=== PATIENT | female | born 1960 | race Caucasian/White ===

== ENCOUNTER 2025-05-05 10:58 | Emergency (ER) | payer OTHER, SELFPAY ==
--- NOTE | ~2025-05-05 | CT_ITS ---
EXAMINATION: CT ABDOMEN AND PELVIS WITHOUT CONTRAST CLINICAL INFORMATION: Right lower quadrant pain, right flank pain COMPARISON: March 02, 2019 TECHNIQUE: Multidetector volumetric imaging was performed from the superior aspect of the liver through the pubic symphysis. Sagittal and coronal reformatted images were obtained on the technologist's workstation. This CT examination was performed using dose optimization techniques as appropriate, variously including the following: *Automated exposure control *Adjustment of mA and/or kV according to patient size (this includes techniques or standardized protocols for targeted exams where dose is matched to indication/reason for exam; i.e. extremities or head) *Use of iterative reconstruction technique DLP: 484 mGY*cm FINDINGS: LUNG BASES: Clear and well aerated LIVER, GALLBLADDER, AND BILIARY TREE: Again seen are multiple small hypoattenuating lesions in liver, likely simple hepatic cysts. The gallbladder is unremarkable with no evidence of radiopaque gallstones, gallbladder wall thickening, or obvious pericholecystic inflammatory changes. PANCREAS: Unremarkable. SPLEEN: Unremarkable. ADRENAL GLANDS: Unremarkable. KIDNEYS AND URETERS: The kidneys are normal in size, shape, and attenuation. No hydronephrosis, hydroureter, or calculi seen. No perinephric stranding. BLADDER: Unremarkable. GASTROINTESTINAL TRACT: There is a pseudodiverticula in the cecum. On the prior examination, there is acute appendicitis. On the current examination, there are clips from appendectomy. ABDOMINAL WALL: There is a small focal hernia containing normal density adipose tissue. LYMPH NODES: Normal. VASCULAR: Unremarkable. PELVIC VISCERA: There is a pessary. There is a lobulated fibroid uterus with increase in calcification of the degenerating fibroids Left adnexal septated cyst measures 2.7 x 4.7 cm previously 2.4 x 4.5 cm, unchanged. OSSEOUS STRUCTURES: Disc space narrowing and vacuum phenomenon is present at L5-S1. CT/CT abdomen pelvis wo IV con IMPRESSION: Post appendectomy. No abnormality to explain right-sided pain. Isolated pseudodiverticulum is present in the right colon, no sign of inflammation. Fleischner guidelines were followed. Electronically signed by: Wally Verdugo MD 05/05/2025 05:04 PM EDT
[2025-05-05 11:15] VITALS: BP 156/63; PULSE 78; RESP 16; TEMP 36.7; O2SAT 98; BMI 25.1
--- NOTE | 2025-05-05 11:15 | ED.ABDPAIN ---
HPI - Abdominal Pain General Chief Complaint: Abdominal Pain Stated Complaint: R Side Abd Pain Time Seen by Provider: 05/05/25 14:05 History of Present Illness HPI narrative: Patient is 65 years old presents today with having abdominal pain for the last 2 weeks. It radiates from the right lower quadrant to the right flank area. History of having appendectomy many years ago. There is no fever no chills there is no vomiting there is some minimal nausea. There is no diarrhea. No travel history no history of kidney stone patient is from home worse in the last 2 days. Related Data Previous Rx's ?Medication ?Instructions ?Recorded bisacodyl 5 mg tablet,delayed 10 mg (2 x 5 mg) PO BEDTIME PRN 05/05/25 release (Dulcolax (bisacodyl)) constipation #30 tabs Allergies Allergy/AdvReac Type Severity Reaction Status Date / Time No Known Allergies (No Known Allergy Verified 05/05/25 11:18 Allergies*) Review of Systems Review of Systems No shortness a breath no focal weakness Yes all other systems are reviewed and are negative [facility] Past Medical History Attestation statement: The following information was validated with the patient. Social History Social History Smoked in Last 30 Days: No Use of substances other than those prescribed or required for medical reasons: No Advance Directives: No Advance Directives Information Provided: No Do you have a plan to hurt others: No Plan Patient : No Physical Exam ED Vital Signs: Vital Signs - 24 hr 05/05/25 11:15 05/05/25 14:40 05/05/25 17:14 Temperature 98.1 F 98.6 F 98.3 F Pulse Rate 78 66 70 Respiratory Rate 16 16 18 Blood Pressure 156/63 H 146/63 H 136/65 Pulse Oximetry 98 98 98 Oxygen Delivery Method Room Air Room Air Room Air BMI result Body Mass Index 25.1 Appearance: Alert. Oriented X3. No acute distress. Eyes: Pupils equal, round and reactive to light. ENT: Pharynx normal. Neck: Normal inspection. Neck supple. No lymph nodes noted. No crepitus CVS: Normal heart rate and rhythm. Pulses normal. Normal S1 and S2 Respiratory: No respiratory distress. Breath sounds normal. No Wheezing. No rales Abdomen: Soft and nontender. No rigidity. No distention. good BS x4 Skin: Skin warm and dry. Normal skin color. Normal skin turgor. Extremities: No lower extremity edema. Neurovascular intact to all extremities. No Lacerations. No Rash Neuro: Oriented X 3. No motor deficit. No sensory deficit. Moving all extermities. No slurred speech Course Course Course Narrative: This is an RME performed by Nestor Gong CNP: Additional HPI, ROS, PE not included below will be deferred to primary provider. Patient is a 65-year-old female who presents emergency department for evaluation of abdominal pain. Had right upper quadrant abdominal pain intermittent over the past 2 weeks, at first felt as though maybe was exacerbated by eating but does not seem to be the case now. Pain has now moved to the right lower quadrant and is more constant. Pain is worse today. Admits to associated nausea but no vomiting. No diarrhea. No symptoms. hx of appendectomy Plan: Serum labs, urinalysis Medical Decision Making Medical Decision Making [facility] Narrative: Patient is a 65-year-old female presents today with having right-sided abdominal pain she is status post appendectomy. The pain has been ongoing for 2 weeks is worse over the right lower quadrant area but radiates to the back. Patient's urine have small amount of blood. CT scan of the abdomen pelvis was ordered. White count is normal. Electrolytes are unremarkable. LFTs are normal. Patient's urine showed small amount of blood no signs of infection. CT scan of the abdomen pelvis is currently pending. Patient's CT scan showed stool overload and fibroids final report is pending patient does not want to wait labs are stable patient is feeling much comfortable at this time will discharge patient home Differential Diagnosis Differential Diagnoses: The differential diagnosis associated with the presentation includes Kidney stone, obstruction, diverticulitis Lab Data [facility] Lab Attestation statement: I reviewed the patient's lab results. 05/05/25 12:02 05/05/25 12:02 Labs: Lab Results 05/05/25 Range/Units 12:02 WBC 5.1 (4.8-10.8) X10*3/uL RBC 4.56 (4.20-5.50) X10*6/uL Hgb 13.8 (12.0-16.0) g/dl Hct 40.3 (37.0-47.0) % MCV 88.4 (80.0-98.0) fL MCH 30.3 (27.0-33.0) pg MCHC 34.2 (31.0-35.0) g/dl RDW 12.5 (11.0-16.0) % Plt Count 298 (160-400) X10*3/uL MPV 10.7 (9.4-12.3) fL Immature Gran % (Auto) 0.4 (0.0-0.4) % Neut % (Auto) 48.2 (45-73) % Lymph % (Auto) 38.2 (20-40) % [place] % (Auto) 10.0 (2-11) % Eos % (Auto) 2.0 (0-4) % Baso % (Auto) 1.2 (0-2) % Lymph # (Auto) 2.0 (1.2-4.9) X10*3/uL [place] # (Auto) 0.5 (0.1-1.2) X10*3/uL Eos # (Auto) 0.1 (0.0-0.4) X10*3/uL Baso # (Auto) 0.1 (0.0-0.2) X10*3/uL Abs Immat Gran (auto) 0.02 (0.00-0.03) X10*3/uL Absolute Neuts (auto) 2.5 (2.0-8.3) x10*3/uL Absolute Nucleated RBC 0.000 (0.0-0.012) X10*3/uL Nucleated RBC % (auto) 0.0 (0.0-0.2) /100WBC Sodium 140 (135-145) mmol/L Potassium 3.7 (3.3-5.1) mmol/L Chloride 105 (96-108) mmol/L Carbon Dioxide 28 (22-29) mmol/L Anion Gap 11 L (12-20) BUN 13 (9-16) mg/dL Creatinine 0.86 (0.5-1.4) mg/dL Estim Creat Clear Calc 65.1 Estimated GFR > 60 Random Glucose 101 (60-115) mg/dL Calcium 9.3 (8.4-10.2) mg/dL Magnesium 2.0 (1.6-2.6) mg/dL Total Bilirubin 0.4 (0.0-1.0) mg/dL AST 23 (5-31) U/L ALT 31 (0-31) U/L Alkaline Phosphatase 45 (39-117) U/L Total Protein 7.3 (6.5-8.0) g/dL Albumin 4.6 (3.5-5.0) g/dL Lipase 15 (8-78) U/L Urine Color Yellow Urine Appearance Clear Urine pH 7.5 (5.0-9.0) Ur Specific [place] 1.010 (1.005-1.025) Urine Protein Negative (Neg-Trace) mg/dL Urine Glucose (UA) Negative (Negative) mg/dL Urine Ketones Negative (Negative) mg/dL Urine Blood Small (1+) H (Negative) Urine Nitrite Negative (Negative) Ur Leukocyte Esterase Negative (Negative) Urine RBC 6-10 H (0-2) /HPF Urine WBC 0-5 (0-5) /HPF Ur Squamous Epith Cells 0-2 (0-2) /HPF Urine Bacteria None Seen (None Seen) Hyaline Casts 0-2 (0-2) /LPF Independent Interpretation I performed an independent interpretation of an: CT Scan (No obstruction no abscess no perforation) Medications Administered Discontinued Medications Generic Name Dose Route Start Last Admin Trade Name Freq PRN Reason Stop Dose Admin Sodium Chloride 1,000 mls @ 999 mls/hr 05/05/25 15:30 05/05/25 17:45 Ns IV 05/05/25 16:30 Infused .Q1H1M CHARLEE Infusion Ketorolac Tromethamine 15 mg 05/05/25 15:28 05/05/25 16:13 Ketorolac Tromethamine 15 Mg/Ml Vial IVPUSH 05/05/25 15:29 Not Given ONCE ONE Ondansetron HCl 4 mg 05/05/25 15:29 05/05/25 16:13 Ondansetron Hcl 4 Mg/2 Ml Vial IVPUSH 05/05/25 15:30 Not Given ONCE ONE Discharge Plan Discharge Clinical Impression: Constipation, Fibroid uterus Patient Disposition: Home, Self-Care Instructions: Uterine Fibroids (ED), Constipation (ED) Additional Instructions: Drink plenty of fluids Take stool softener daily as advised You may take Dulcolax every night Follow with your PCP if not better Prescriptions: New bisacodyl [Dulcolax (bisacodyl)] 5 mg tablet,delayed release (DR/EC) 10 mg PO BEDTIME PRN (Reason: constipation) Qty: 30 0RF Print Language: Hungarian
--- NOTE | 2025-05-05 11:18 | ECG_ITS ---
Test Reason : ABDOMINAL PAIN Blood Pressure : */* mmHG Vent. Rate : 65 BPM Atrial Rate : 65 BPM P-R Int : 160 ms QRS Dur : 78 ms QT Int : 418 ms P-R-T Axes : 58 53 60 degrees QTcB Int : 434 ms Normal sinus rhythm Normal ECG No previous ECGs available Referred By: Roseann Gong Electronically Signed By: SHE GONZALEZ MD
[2025-05-05 12:07] LABS: MANUAL DIFF FLAG NO
[2025-05-05 12:09] LABS: Appearance Urine Clear; Glucose Urine UA Negative (Negative); Hematocrit 40.3 % (37.0-47.0); Hemoglobin 13.8 g/dl (12.0-16.0); Imm Gran Abs Auto 0.02 X10*3/uL (0.00-0.03); Imm Gran Pct Auto 0.4 % (0.0-0.4); Lymphocytes Absolute Auto 2.0 X10*3/uL (1.2-4.9); Mean Corpuscular HGB Conc 34.2 g/dl (31.0-35.0); Mean Corpuscular Hemoglobin 30.3 pg (27.0-33.0); Mean Corpuscular Volume 88.4 fL (80.0-98.0); NRBC Abs Auto 0.000 X10*3/uL (0.0-0.012); NRBC Pct Auto 0.0 /100WBC (0.0-0.2); PH 7.5 (5.0-9.0); Platelet Count 298 X10*3/uL (160-400); Red Blood Count 4.56 X10*6/uL (4.20-5.50); Specific Gravity - Urine 1.010 (1.005-1.025); UMIC TRIGGER UACC YES; White Blood Count 5.1 X10*3/uL (4.8-10.8)
[2025-05-05 12:23] LABS: Alanine Aminotransferase 31 U/L (0-31); Albumin Level 4.6 g/dL (3.5-5.0); Alkaline Phosphatase 45 U/L (39-117); Anion Gap 11 (12-20); Aspartate Amino Transferase 23 U/L (5-31); Blood Urea Nitrogen 13 mg/dL (9-16); Calcium 9.3 mg/dL (8.4-10.2); Carbon Dioxide 28 mmol/L (22-29); Chloride 105 mmol/L (96-108); Creatinine Clr Calc Pharmacy 65.1; Estimated Glomerular Filt Rate > 60; Lipase 15 U/L (8-78); Magnesium 2.0 mg/dL (1.6-2.6); Potassium 3.7 mmol/L (3.3-5.1); Sodium 140 mmol/L (135-145); Total Protein 7.3 g/dL (6.5-8.0)
[2025-05-05 14:40] VITALS: BP 146/63; PULSE 66; RESP 16; TEMP 37; O2SAT 98
--- OUTSIDE RECORDS SUMMARY | 2025-05-05 14:48 | XMS_ITS | Data Portability ---
Author Organization [facility], , [facility] Address [address] [place] [address] Care Team Providers Care Communications Administrator Name Role Phone ARTEMIO ORTIZ Primary Care Provider Assessment Encounter Date Assessment Date Assessment LastModified by Organization Details LastModified Time 05/05/2023 05/05/2023 After a discussion of treatment options, which included consideration of best practices and patient preferences, the following treatment plan and objectives were adopted: pkeough Not available 05/05/2023 09:53:19 Plan of Treatment Reminders Order Date Submit Date Provider Last Modified By Organization Details Last Modified Time Details Appointments Ultras ound 45 min 2024 09:45A M [facility] Ultrasound Not available Not available Not available Catrachone ss Visit 30 2024 09:00A M Greta Brambila MEDICAL PRACTICE ADMINISTRATOR Not available Not available Not available Lab urinal ysis, dipsti ck [address] [facility], [address] [place] [address], [id number], 05/04/2025 16:30:08 cultur e, urine [email or web address] [facility], [address] [place] [address], [id number], 05/04/2025 16:30:08 CMP, serum or plasma 2024 025 [facility], [address] [place] [address], [id number], 05/04/2025 15:25:45 CBC 2024 025 [facility], [address] [place] [address], [id number], 05/05/2025 10:22:27 lipase , serum or plasma 2024 025 [facility], [address] [place] [address], [id number], 05/04/2025 15:25:45 HbA1c (hemog lobin A1c), blood 2023 024 [facility], [address] [place] [address], [id number], 04/07/2025 16:09:39 TSH, serum or plasma 2023 024 [facility], [address] [place] [address], [id number], 12/21/2023 12:08:39 lipid panel, serum 2023 024 [facility], [address] [place] [address], [id number], 12/03/2024 15:15:07 lipid panel, serum 2023 024 [facility], [address] [place] [address], [id number], 12/03/2024 15:15:07 urinal ysis, dipsti ck 2022 023 [facility], [address] [place] [address], 01861, 05/05/2023 10:07:43 cultur e, urine 2022 023 [facility], [address] [place] [address], 08257, 05/07/2023 09:12:45 HbA1c (hemog lobin A1c), blood 2022 023 [facility], [address] [place] [address], [address], 10/03/2023 15:35:43 lipid panel, serum 2022 023 [facility], [address] [place], [address], 10/03/2023 14:40:19 Referral None record ed. Procedures None record ed. Surgeries None record ed. Imaging US, abdome n, comple te - ruq and right flank pain - r/o gallbl adder diseas e, renal calcul i 2024 025 [facility] (Imaging), [address] , [place], [address], 05/05/2025 09:48:28 Medication Orders gabape ntin 100 mg capsul e 2024 025 [id number], [address], [place], [id number], 05/04/2025 15:15:59 pravas tatin 10 mg tablet 2023 024 [email or web address] [id number], [address], [place], [id number], 05/04/2025 14:49:56 Estrin g 2 mg (7.5 mcg/24 hour) vagina l ring 2023 024 [place] [facility][id number], [address], [place], [id number], 12/05/2023 09:24:20 Bactri m DS 800 mg-160 mg tablet 2022 023 [facility]o [facility] [address] [facility] [address], [place], [id number], 02/13/2024 08:46:09 Patient TargetsNo targets recorded. Patient InstructionsNo instructions recorded. Reason for Referral None Reported. Results Created Date Observation Date Name Description Value Unit Range Abnormal Flag Note LastModifiedBy Organization Detail LastModifiedTime 03/19/20 23 03/19/2023 HGB A1C hemoglobin A1C 6.0 % 4.8-6. 0 Goal: <7% in Patie nts with Diabe misha An A1c betwe en 5.7-6 .4% is ident ified as pre-d iabet es and sugge sts risk for progr essio n to diabe misha Two a1c value s of 6.5% or highe r is consi stent with a diagn osis of diabe misha but may need furth er confi rmati on Not Available [address], [address], 03/19/2023 10:50:23 03/19/2003/19/2023 HGB A1C estimated average glucose 125.5 mg/dL Not Available [address], [address], 03/19/2023 10:50:23 03/19/20 23 03/19/2023 LIPID PANEL cholesterol 263 mg/dL <200 mg/dl Elroy able 200-2 39 mg/dl Borde rline High >240 mg/dl High Not Available [address], [address], 03/19/2023 12:42:26 03/19/2003/19/2023 LIPID PANEL triglyceride s 106 mg/dL <150 mg/dL Laurence l 150-1 99 mg/dL Borde rline High 200-4 99 mg/dL High >500 mg/dL Very High Not Available [address], [address], 03/19/2023 12:42:26 03/19/2003/19/2023 LIPID PANEL direct HDL 74 mg/dL <40 mg/dl - Major Risk for CHD >60 mg/dl - Negat birgit Risk for CHD Not Available [address], [address], 03/19/2023 12:42:26 03/19/2003/19/2023 LDL - CALCU LATED LDL - calculated 167.8 RISK CATEG ORY LDL GOAL _ CHD or CHD Risk Equiv alent s <100 mg/dl (10-y ear risk >20%) 2+ Risk Facto rs <130 mg/dl (10-y ear risk <= 20%) 0-1 Risk Facto r <160 mg/dl Almo st all peopl e with 0-1 risk facto r have a 10 year risk <10%, thus 10 year risk asses ment in peopl e with 0-1 risk facto r is not pamella skinner. Not Available [address], [address], 03/19/2023 12:42:27 03/19/20 23 03/19/2023 BASIC METAB OLIC PANEL glucose 92 mg/dL 70-100 Not Available [address], [address], 03/19/2023 16:02:10 03/19/20 23 03/19/2023 BASIC METAB OLIC PANEL BUN 12 mg/dL 7-18 Not Available [address], [address], 03/19/2023 16:02:10 03/19/20 23 03/19/2023 BASIC METAB OLIC PANEL creatinine 0.9 mg/dL 0.8-1. 3 Not Available [address], 18[address], 03/19/2023 16:02:10 03/19/20 23 03/19/2023 BASIC METAB OLIC PANEL B/C 13.3 ratio Not Available [address], 57[address], 03/19/2023 16:02:10 03/19/20 23 03/19/2023 BASIC METAB OLIC PANEL GFR >=60ML /MIN mL/mi n normal >=60m L/min - Laurence l or midly reduc ed <60mL /min- Decre ased kidne y funct ion <15mL /min - Kidne y failu re [facility] calcu lates estim ated Glome rular Filtr ation Rate (eGFR ) using the Chron ic Kidne y Disea se Epide miolo gy Colla borat ion (CKD- EPI) Equat ion (Fabiana r et. al 2020) as recom rowan d by the Natio nal Kidne y Found ation . eGFR is based on age, serum creat inine , and sex. CKD-E PI does not calcu late eGFR by race, does not apply to child cesar (age <18 years ), and shoul d not be used in pregn sin. Not Available [address], [address], 03/19/2023 16:02:10 03/19/20 23 03/19/2023 BASIC METAB OLIC PANEL sodium 141 mmol/ L 136-14 5 Not Available [address], [address]60, 03/19/2023 16:02:10 03/19/20 23 03/19/2023 BASIC METAB OLIC PANEL potassium 5.1 mmol/ L 3.5-5. 1 Not Available [address], 03180, 03/19/2023 16:02:10 03/19/20 23 03/19/2023 BASIC METAB OLIC PANEL chloride 104 mmol/ L 96-107 Not Available [address], 8[address], 03/19/2023 16:02:10 03/19/20 23 03/19/2023 BASIC METAB OLIC PANEL anion gap 7.0 5.0-15 .0 Not Available [address], 9[address]01, 03/19/2023 16:02:10 03/19/20 23 03/19/2023 BASIC METAB OLIC PANEL CO2 30 mmol/ L 21-32 Not Available [address], 620[address], 03/19/2023 16:02:10 03/19/20 23 03/19/2023 BASIC METAB OLIC PANEL calcium 9.0 mg/dL 8.5-10 .3 Not Available [address], [address]276, 03/19/2023 16:02:10 05/05/20 23 05/05/2023 POC UA glu UA NEGATI VE Not Available [facility] [address] [place] [address], [address], 05/05/2023 09:41:46 05/05/20 23 05/05/2023 POC UA clarity UA CLEAR Not Available [facility] [address] [place] [address], 14359, 05/05/2023 09:41:46 05/05/20 23 05/05/2023 POC UA uro UA 0.2000 Not Available [facility] [address] [place] [address], [address], 05/05/2023 09:41:46 05/05/20 23 05/05/2023 POC UA ket UA NEGATI VE Not Available [facility] [address] [place] [address], 87[address], 05/05/2023 09:41:46 05/05/20 23 05/05/2023 POC UA pro UA NEGATI VE Not Available [facility] [address] [place] [address], 91029, 05/05/2023 09:41:46 05/05/20 23 05/05/2023 POC UA nit UA NEGATI VE Not Available [facility] [address] [place] [address], 81689, 05/05/2023 09:41:46 05/05/20 23 05/05/2023 POC UA angela UA NEGATI VE Not Available [facility] [address] [place] [address], 468[address], 05/05/2023 09:41:46 05/05/20 23 05/05/2023 POC UA pH UA 7.0000 Not Available [facility] [address] [place] [address], 73727, 05/05/2023 09:41:46 05/05/2005/05/2023 POC UA SG UA 1.0100 Not Available [facility] [address] [place] [address], 86880, 05/05/2023 09:41:46 05/05/2005/05/2023 POC UA color UA YELLOW Not Available [facility] [address] [place] [address], 95920, 05/05/2023 09:41:46 05/05/2005/05/2023 POC UA blo UA 1+ abnormal Not Available [facility] [address] [place] [address], 28822, 05/05/2023 09:41:46 05/05/2005/05/2023 POC UA shanae UA NEGATI VE Not Available [facility] [address] [place] [address], 03512, 05/05/2023 09:41:46 05/05/2005/07/2023 CULTU RE, URINE , ROUTI NE culture, urine, routine CULTU RE, URINE , ROUTI NE Micro Numbe r: [id number] Test Statu s: Final Speci men Sourc e: Urine Speci men Quali ty: Adequ ate Resul t: No Growt h Not Available [facility] [address], [address], 05/07/2023 09:12:45 05/28/2005/29/2023 ANATO ODALIS PATHO LOGY path report [facility] [address] [place] - [facility] [place] [address] Lab Direc tor: Ingrid polo MD Surgi vanessa Patho logy Repor t Acces maggy #: [id number] FINAL PATHO LOGIC DIAGN OSIS: COLON POLYP X 1, RECTU M, COLD SNARE REMOV AL: Adeno matou s polyp . Macey ctron icall y Rachell d Out By Ingrid polo MD By his/h er ifeoma cheatham above , the patho logis t liste d as juan carlos eldridge the Final Diagn osis certi fies that he/sh e has perso coral revie wed this case and confi rmed or corre cted the diagn osis. CLINI VANESSA HISTO RY High risk colon cance r surve illan ce: Perso nal histo ry of colon ic polyp s SPECI MENS SUBMI TTED: A: RECTU M COLON , POLYP X 1 GROSS DESCR IPTIO N RECTU M COLON , POLYP X 1: Recei cristal in forma darshan is a singl e piece of moreno soft tissu e which measu res 0.7 cm in great est dimen maggy. Bisec nabil and total ly submi tted in block A1. LT 2022 Gross ing Staff : SHAR brown Name: JESSICA BURR : 1959 (Age: 63) Sex: F 8 Insti tutio n: [facility] Locat ion: [facility] Date of Opera tion: 2022 Date of Acces maggy: 2022 Repor nabil: 2022 15:42 Resul ts To: Jasen Gonzalez MD, BS, MS Zora andrade MD, MPH, BA Not Available [facility] (Outpatient) [address] [place], [address], 05/29/2023 16:11:56 10/03/20 23 10/03/2023 LIPID PANEL cholesterol 311 mg/dL <200 mg/dl Elroy able 200-2 39 mg/dl Borde rline High >240 mg/dl High Not Available [address], [address], 10/03/2023 14:40:19 10/03/20 23 10/03/2023 LIPID PANEL triglyceride s 86 mg/dL <150 mg/dL Laurence l 150-1 99 mg/dL Borde rline High 200-4 99 mg/dL High >500 mg/dL Very High Not Available [address], [address], 10/03/2023 14:40:19 10/03/20 23 10/03/2023 LIPID PANEL direct HDL 87 mg/dL <40 mg/dl - Major Risk for CHD >60 mg/dl - Negat birgit Risk for CHD Not Available [address], [address], 10/03/2023 14:40:19 10/03/2010/03/2023 LDL - CALCU LATED LDL - calculated 206.8 RISK CATEG ORY LDL GOAL _ CHD or CHD Risk Equiv alent s <100 mg/dl (10-y ear risk >20%) 2+ Risk Facto rs <130 mg/dl (10-y ear risk <= 20%) 0-1 Risk Facto r <160 mg/dl [facility] all peopl e with 0-1 risk facto r have a 10 year risk <10%, thus 10 year risk asses ment in peopl e with 0-1 risk facto r is not neces brody. Not Available [address], [address], 10/03/2023 14:40:20 10/03/2010/03/2023 HGB A1C hemoglobin A1C 6.1 % 4.8-6. 0 high Goal: <7% in Patie nts with Diabe misha An A1c betwe en 5.7-6 .4% is ident ified as pre-d iabet es and sugge sts risk for progr essio n to diabe misha Two a1c value s of 6.5% or highe r is consi stent with a diagn osis of diabe misha but may need furth er confi rmati on Not Available [address], [address], 10/03/2023 15:35:42 10/03/20 23 10/03/2023 HGB A1C estimated average glucose 128.4 mg/dL Not Available [address], [address], 10/03/2023 15:35:42 12/21/19 24 12/21/2023 LIPID PANEL cholesterol 241 mg/dL <200 mg/dl Elroy able 200-2 39 mg/dl Borde rline High >240 mg/dl High Not Available [address], 48187, 12/21/2023 11:40:48 12/21/19 24 12/21/2023 LIPID PANEL triglyceride s 69 mg/dL <150 mg/dL Laurence l 150-1 99 mg/dL Borde rline High 200-4 99 mg/dL High >500 mg/dL Very High Not Available [address], [address]06, 12/21/2023 11:40:48 12/21/19 24 12/21/2023 LIPID PANEL direct HDL 71 mg/dL <40 mg/dl - Major Risk for CHD >60 mg/dl - Negat birgit Risk for CHD Not Available [address], [address], 12/21/2023 11:40:48 12/21/19 24 12/21/2023 LDL - CALCU LATED LDL - calculated 156.2 RISK CATEG ORY LDL GOAL _ CHD or CHD Risk Equiv alent s <100 mg/dl (10-y ear risk >20%) 2+ Risk Facto rs <130 mg/dl (10-y ear risk <= 20%) 0-1 Risk Facto r <160 mg/dl Almo st all peopl e with 0-1 risk facto r have a 10 year risk <10%, thus 10 year risk asses ment in peopl e with 0-1 risk facto r is not pamella skinner. Not Available [address], [address], 12/21/2023 11:40:49 12/21/19 24 12/21/2023 TSH TSH 4.98 uIU/m L 0.50-6 .00 The Ameri can Colle ge of Endoc rinol ogy and Ameri can Thyro id Assoc iatio n recom mend goal TSH value s betwe en 0.4-4 .0 mIU/m L. Not Available [address], [address], 12/21/2023 12:08:39 06/25/20 24 06/25/2024 CBC WBC 6.58 K/ L 3.98-1 0.04 Not Available [address], [address], 06/25/2024 10:28:25 06/25/20 24 06/25/2024 CBC RBC 4.59 M/ L 3.93-5 .22 Not Available [address], 83206, 06/25/2024 10:28:25 06/25/20 24 06/25/2024 CBC HGB 13.6 g/dL 11.2-1 5.7 Not Available [address], [address], 06/25/2024 10:28:25 06/25/20 24 06/25/2024 CBC HCT 41.4 % 34.1-4 4.9 Not Available [address], [address]755, 06/25/2024 10:28:25 06/25/20 24 06/25/2024 CBC MCV 90.2 fL 79.4-9 4.8 Not Available [address], [address], 06/25/2024 10:28:25 06/25/20 24 06/25/2024 CBC MCH 29.6 pg 25.6-3 2.2 Not Available [address], [address], 06/25/2024 10:28:25 06/25/20 24 06/25/2024 CBC MCHC 32.9 g/dL 32.2-3 5.5 Not Available [address], [address]482, 06/25/2024 10:28:25 06/25/20 24 06/25/2024 CBC plt 308 K/ L 182-36 9 Not Available [address], [address], 06/25/2024 10:28:25 06/25/20 24 06/25/2024 CBC MPV 11.5 fL 9.4-12 .3 Not Available [address], 17752, 06/25/2024 10:28:25 06/25/20 24 06/25/2024 CBC neut% 42.9 % 34.0-7 1.1 Not Available [address], [address], 06/25/2024 10:28:25 06/25/20 24 06/25/2024 CBC neut# 2.83 1.56-6 .13 Not Available [address], [address], 06/25/2024 10:28:25 06/25/20 24 06/25/2024 CBC lymph % 42.6 % 19.3-5 1.7 Not Available [address], 99255, 06/25/2024 10:28:25 06/25/20 24 06/25/2024 CBC lymph # 2.80 K/ L 1.18-3 .74 Not Available [address], 59597, 06/25/2024 10:28:25 06/25/20 24 06/25/2024 CBC mono% 10.2 % 4.7-12 .5 Not Available [address], [address], 06/25/2024 10:28:25 06/25/20 24 06/25/2024 CBC mono# 0.67 0.24-0 .56 high Not Available [address], 75228, 06/25/2024 10:28:25 06/25/20 24 06/25/2024 CBC eo% 3.3 % 0.7-5. 8 Not Available [address], 72850, 06/25/2024 10:28:25 06/25/20 24 06/25/2024 CBC eo# 0.22 0.04-0 .36 Not Available [address], [address]23, 06/25/2024 10:28:25 06/25/20 24 06/25/2024 CBC baso% 0.8 % 0.1-1. 2 Not Available [address], 77615, 06/25/2024 10:28:25 06/25/20 24 06/25/2024 CBC baso# 0.05 0.00-0 .08 Not Available [address], 40632, 06/25/2024 10:28:25 06/25/20 24 06/25/2024 CBC RDW-CV 12.3 % 11.7-1 4.4 Not Available [address], [address], 06/25/2024 10:28:25 06/25/20 24 06/25/2024 CBC Ig% 0.200 % 0.000- 1.500 Ig % >0.5 Indic ates possi ble Left Shift Not Available [address], [address], 06/25/2024 10:28:25 06/25/20 24 06/25/2024 CBC Ig# 0.010 0.000- 0.093 Not Available [address], [address], 06/25/2024 10:28:25 06/25/20 24 06/25/2024 CBC NRBC% 0.0 % 0.0-0. 2 Not Available [address], 76049, 06/25/2024 10:28:25 06/25/20 24 06/25/2024 CBC NRBC# 0.000 0.000- 0.012 Not Available [address], 10894, 06/25/2024 10:28:25 06/25/20 24 06/25/2024 HGB A1C hemoglobin A1C 6.0 % 4.8-6. 0 Goal: <7% in Patie nts with Diabe misha An A1c betwe en 5.7-6 .4% is ident ified as pre-d iabet es and sugge sts risk for progr essio n to diabe misha Two a1c value s of 6.5% or highe r is consi stent with a diagn osis of diabe misha but may need furth er confi rmati on Not Available [address], [address], 06/25/2024 11:08:01 06/25/20 24 06/25/2024 HGB A1C estimated average glucose 125.5 mg/dL Not Available [address], [address], 06/25/2024 11:08:01 06/25/20 24 06/25/2024 COMP. METAB OLIC PANEL glucose 91 mg/dL 70-100 Not Available [address], [address], 06/25/2024 14:17:12 06/25/20 24 06/25/2024 COMP. METAB OLIC PANEL BUN 16 mg/dL 7-18 Not Available [address], [address], 06/25/2024 14:17:12 06/25/20 24 06/25/2024 COMP. METAB OLIC PANEL creatinine 0.9 mg/dL 0.8-1. 3 Not Available [address], [address], 06/25/2024 14:17:12 06/25/20 24 06/25/2024 COMP. METAB OLIC PANEL B/C 17.8 ratio Not Available [address], [address], 06/25/2024 14:17:12 06/25/20 24 06/25/2024 COMP. METAB OLIC PANEL GFR >=60ML /MIN mL/mi n normal >=60m L/min - Laurence l or midly reduc ed <60mL /min- Decre ased kidne y funct ion <15mL /min - Kidne y failu re [facility] calcu lates estim ated Glome rular Filtr ation Rate (eGFR ) using the Chron ic Kidne y Disea se Epide miolo gy Colla borat ion (CKD- EPI) Equat ion (Fabiana pal et. al 2020) as recom rowan d by the Natio nal Kidne y Found ation . eGFR is based on age, serum creat inine , and sex. CKD-E PI does not calcu late eGFR by race, does not apply to child cesar (age <18 years ), and shoul d not be used in pregn sin. Not Available [address], [address], 06/25/2024 14:17:12 06/25/20 24 06/25/2024 COMP. METAB OLIC PANEL sodium 141 mmol/ L 136-14 5 Not Available [address], [address], 06/25/2024 14:17:12 06/25/20 24 06/25/2024 COMP. METAB OLIC PANEL potassium 4.3 mmol/ L 3.5-5. 1 Not Available [address], 07987, 06/25/2024 14:17:12 06/25/20 24 06/25/2024 COMP. METAB OLIC PANEL chloride 102 mmol/ L 96-107 Not Available [address], [address], 06/25/2024 14:17:12 06/25/20 24 06/25/2024 COMP. METAB OLIC PANEL anion gap 9.8 5.0-15 .0 Not Available [address], 96556, 06/25/2024 14:17:12 06/25/20 24 06/25/2024 COMP. METAB OLIC PANEL CO2 29 mmol/ L 21-32 Not Available [address], [address], 06/25/2024 14:17:12 06/25/20 24 06/25/2024 COMP. METAB OLIC PANEL calcium 9.2 mg/dL 8.5-10 .3 Not Available [address], [address], 06/25/2024 14:17:12 06/25/20 24 06/25/2024 COMP. METAB OLIC PANEL total protein 7.2 g/dL 6.4-8. 2 Not Available [address], [address], 06/25/2024 14:17:12 06/25/20 24 06/25/2024 COMP. METAB OLIC PANEL albumin 4.0 g/dL 3.4-5. 0 Not Available [address], 31698, 06/25/2024 14:17:12 06/25/20 24 06/25/2024 COMP. METAB OLIC PANEL globulin 3.2 g/dL Not Available [address], 70742, 06/25/2024 14:17:12 06/25/20 24 06/25/2024 COMP. METAB OLIC PANEL A/G 1.3 ratio 0.8-2. 0 Not Available [address], 05455, 06/25/2024 14:17:12 06/25/20 24 06/25/2024 COMP. METAB OLIC PANEL total bilirubin 0.40 mg/dL 0.00-1 .00 Not Available [address], 34[address], 06/25/2024 14:17:12 06/25/20 24 06/25/2024 COMP. METAB OLIC PANEL AST 16 U/L 0-37 Not Available [address], [address]240, 06/25/2024 14:17:12 06/25/20 24 06/25/2024 COMP. METAB OLIC PANEL ALT 35 U/L 6-63 Not Available [address], 25652, 06/25/2024 14:17:12 06/25/20 24 06/25/2024 COMP. METAB OLIC PANEL alk. phos. 45 U/L 50-136 low Not Available [address], 6[address], 06/25/2024 14:17:12 06/25/20 24 06/25/2024 LIPID PANEL cholesterol 240 mg/dL <200 mg/dl Elroy able 200-2 39 mg/dl Borde rline High >240 mg/dl High Not Available [address], 987[address], 06/25/2024 14:17:13 06/25/20 24 06/25/2024 LIPID PANEL triglyceride s 96 mg/dL <150 mg/dL Laurence l 150-1 99 mg/dL Borde rline High 200-4 99 mg/dL High >500 mg/dL Very High Not Available [address], [address], 06/25/2024 14:17:13 06/25/20 24 06/25/2024 LIPID PANEL direct HDL 73 mg/dL <40 mg/dl - Major Risk for CHD >60 mg/dl - Negat birgit Risk for CHD Not Available [address], [address], 06/25/2024 14:17:13 06/25/20 24 06/25/2024 DIREC T LDL direct LDL 134 mg/dL RISK CATEG ORY LDL GOAL _ CHD or CHD Risk Equiv alent s <100 mg/dl (10-y ear risk >20%) 2+ Risk Facto rs <130 mg/dl (10-y ear risk <= 20%) 0-1 Risk Facto r <160 mg/dl [facility] all peopl e with 0-1 risk facto r have a 10 year risk <10%, thus 10 year risk asses ment in peopl e with 0-1 risk facto r is not neces brody. Not Available [address], [address], 06/25/2024 14:17:14 05/04/20 25 05/04/2025 POC UA glu UA NEGATI VE Not Available [facility] [address] [place] [address], [address], 05/04/2025 15:03:08 05/04/20 25 05/04/2025 POC UA clarity UA CLEAR Not Available [facility] [address] [place] [address], [address], 05/04/2025 15:03:08 05/04/20 25 05/04/2025 POC UA uro UA 0.2000 Not Available [facility] [address] [place] [address], [address]207, 05/04/2025 15:03:08 05/04/20 25 05/04/2025 POC UA ket UA NEGATI VE Not Available [facility] [address] [place] [address], [address], 05/04/2025 15:03:08 05/04/20 25 05/04/2025 POC UA pro UA NEGATI VE Not Available [facility] [address] [place] [address], [address], 05/04/2025 15:03:08 05/04/20 25 05/04/2025 POC UA nit UA NEGATI VE Not Available [facility] [address] [place] [address], 18609, 05/04/2025 15:03:08 05/04/20 25 05/04/2025 POC UA angela UA NEGATI VE Not Available [facility] [address] [place] [address], [address], 05/04/2025 15:03:08 05/04/20 25 05/04/2025 POC UA pH UA 7.0000 Not Available [facility] [address] [place] [address], [id number], 05/04/2025 15:03:08 05/04/20 25 05/04/2025 POC UA SG UA 1.0150 Not Available [facility] [address] [place] [address], [id number], 05/04/2025 15:03:08 05/04/20 25 05/04/2025 POC UA color UA YELLOW Not Available [facility] [address] [place] [address], [id number], 05/04/2025 15:03:08 05/04/20 25 05/04/2025 POC UA blo UA 1+ abnormal Not Available [facility] [address] [place] [address], [id number], 05/04/2025 15:03:08 05/04/20 25 05/04/2025 POC UA shanae UA NEGATI VE Not Available [facility] [address] [place] [address], [id number], 05/04/2025 15:03:08 05/04/20 25 05/05/2025 CBC WBC 6.21 K/ L 3.98-1 0.04 Not Available [address], [id number], 05/05/2025 10:22:27 05/04/20 25 05/05/2025 CBC RBC 4.35 M/ L 3.93-5 .22 Not Available [address], [id number], 05/05/2025 10:22:27 05/04/20 25 05/05/2025 CBC HGB 13.1 g/dL 11.2-1 5.7 Not Available [address], [id number], 05/05/2025 10:22:27 05/04/20 25 05/05/2025 CBC HCT 41.3 % 34.1-4 4.9 Not Available [address], [id number], 05/05/2025 10:22:27 05/04/20 25 05/05/2025 CBC MCV 94.9 fL 79.4-9 4.8 high Not Available [address], [address], 05/05/2025 10:22:27 05/04/20 25 05/05/2025 CBC MCH 30.1 pg 25.6-3 2.2 Not Available [address], [address], 05/05/2025 10:22:27 05/04/20 25 05/05/2025 CBC MCHC 31.7 g/dL 32.2-3 5.5 low Not Available [address], [address], 05/05/2025 10:22:27 05/04/20 25 05/05/2025 CBC plt 297 K/ L 182-36 9 Not Available [address], [address], 05/05/2025 10:22:27 05/04/20 25 05/05/2025 CBC MPV 12.8 fL 9.4-12 .3 high Not Available [address], [address], 05/05/2025 10:22:27 05/04/20 25 05/05/2025 CBC neut% 49.6 % 34.0-7 1.1 Not Available [address], [address], 05/05/2025 10:22:27 05/04/20 25 05/05/2025 CBC neut# 3.08 1.56-6 .13 Not Available [address], [address], 05/05/2025 10:22:27 05/04/20 25 05/05/2025 CBC lymph % 37.5 % 19.3-5 1.7 Not Available [address], [address], 05/05/2025 10:22:27 05/04/20 25 05/05/2025 CBC lymph # 2.33 K/ L 1.18-3 .74 Not Available [address], [address], 05/05/2025 10:22:27 05/04/20 25 05/05/2025 CBC mono% 9.3 % 4.7-12 .5 Not Available [address], [address], 05/05/2025 10:22:27 05/04/20 25 05/05/2025 CBC mono# 0.58 0.24-0 .56 high Not Available [address], [address], 05/05/2025 10:22:27 05/04/2005/05/2025 CBC eo% 2.4 % 0.7-5. 8 Not Available [address], [address], 05/05/2025 10:22:27 05/04/2005/05/2025 CBC eo# 0.15 0.04-0 .36 Not Available [address], [address], 05/05/2025 10:22:27 05/04/2005/05/2025 CBC baso% 1.0 % 0.1-1. 2 Not Available [address], [address], 05/05/2025 10:22:27 05/04/2005/05/2025 CBC baso# 0.06 0.00-0 .08 Not Available [address], [address], 05/05/2025 10:22:27 05/04/2005/05/2025 CBC RDW-CV 13.0 % 11.7-1 4.4 Not Available [address], [address], 05/05/2025 10:22:27 05/04/2005/05/2025 CBC Ig% 0.200 % 0.000- 1.500 Ig % >0.5 Indic ates possi ble Left Shift Not Available [address], [address], 05/05/2025 10:22:27 05/04/2005/05/2025 CBC Ig# 0.010 0.000- 0.093 Not Available [address], [address], 05/05/2025 10:22:27 05/04/2005/05/2025 CBC NRBC% 0.0 % 0.0-0. 2 Not Available [address], [address], 05/05/2025 10:22:27 05/04/20 25 05/05/2025 CBC NRBC# 0.000 0.000- 0.012 Not Available [address], [address], 05/05/2025 10:22:27 06/14/20 23 06/14/2023 MAMMO , caitlin purvis No observ ation record ed. [facility] [address] [place], [address], 06/14/2023 20:44:11 Result Notes None recorded. Problems Name Problem SNOMED Code Status Onset Date Resolution Date Notes Provider Name and Address Organization Details Recorded Time Family history of diabetes mellitus 115867013 Active 2017 Artemio Ortiz MD [address] [place], [place] [address] [place], [address], [facility] 09:40:25 Joint pain in ankle and foot Completed 200509/24/2013 Traci Estes MD [address] [place], [place] [address] [place], [address], [facility] 11:21:27 Abdominal pain 84537873 Completed 200609/24/2013 Traci Estes MD [address] [place] [address] [place], [address], [facility] 11:21:27 Hemorrhage of rectum and anus 436905864 Completed 200609/24/2013 Traci Estes MD Formerly [facility], [facility]–[place], [address], [facility] 11:21:27 Constipatio n 10725142 Completed 200609/24/2013 Traci Estes MD [address] [place] [address] [place], [address], [facility] 6 11:21:27 Hearing loss 82511298 Active 2007 Traci Estes MD [address] [place], [place] [address], [address], [facility] 6 11:21:27 Generalized abdominal pain 390712244 Completed 200609/24/2013 Traci Estes MD [address] [place], [place] [address], [address], [facility] 6 11:21:27 Sprain of ankle 04586138 Completed 200509/24/2013 Traci Estes MD [address] [place], [place] [address], [address], [facility] 11:21:27 Urticaria 687712690 Active Traci Estes MD [address] [place], [place] [address], [address] , [facility] 11:21:27 Problem Notes None recorded. Procedures Surgical History Date Name Laterality Status Provider Name and Address Organization Details Recorded Time 07/06/20 18 POC Urinalysis Testing completed Ese Aceves MA [facility] 07/06/2018 09:51:03 appendectomy completed Gianna Fritz MA [facility] 07/31/2019 09:36:32 Imaging Results None recorded. Procedure Notes None recorded. Medical Equipment None Reported. Allergies No known drug allergies Medications Name Sig Start Date Stop Date Status Note LastModified by Organization Details LastModified Time Estring 2 mg (7.5 mcg/24 hour) vaginal ring INSERT 1 RING(S) VAGINALL Y EVERY 3 MONTHS active Not Available Not Available No t Available sucralfat e 1 gram tablet 05/29 completed Not Available Not Available Not Available ondansetr on HCl 4 mg tablet 05/29 completed Not Available Not Available Not Available estradiol 0.05 mg/24 hr weekly transderm al patch Apply 1 patch every week by transder mal route. active cutting patches in half Not Available Not Available Not Available doxycycli ne hyclate 50 mg capsule active every other day Not Available Not Available Not Available sumatript an 50 mg tablet TAKE 1 TABLET BY MOUTH EVERY DAY NEEDED active Not Available Not Available No t Available prochlorp erazine maleate 10 mg tablet 10/18 completed Not Available Not Available Not Available sulfameth oxazole 800 mg-trimet hoprim 160 mg tablet TAKE 1 TABLET BY MOUTH TWICE DAILY 02/12 completed not currentj 12/05/23 tb Not Available Not Available Not Available butalbita l-acetami nophen-ca ffeine 50 mg-325 mg-40 mg tablet 05/29 completed prn for migraine s 7.25.18 sma Not Available Not Available Not Available ondansetr on 8 mg disintegr ating tablet DISSOLVE 1 TABLET ON THE TONGUE EVERY 8 HOURS active Not Available Not Available No t Available pantopraz ole 20 mg tablet,de layed release 10/18 completed Not Available Not Available Not Available omeprazol e 10 mg capsule,d elayed release 05/29 completed Not Available Not Available Not Available lorazepam 0.5 mg tablet TAKE 1 TABLET BY MOUTH ONCE DAILY NEEDED FOR 3 DAYS 04/10 completed Not Available Not Available Not Available pravastat in 10 mg tablet TAKE 1 TABLET BY MOUTH EVERY DAY active stopped med 05/04/25 Not Available Not Available Not Available tamoxifen 10 mg tablet TAKE 1/2 TABLET BY MOUTH ONCE DAILY 01/24 completed had terrible pelvic cramping Not Available Not Available Not Available progester one micronize d 200 mg capsule Take 1 capsule every day by oral route for 12 days. 05/29 completed Not Available Not Available Not Available fluoxetin e 10 mg capsule TK 1 C PO QD 04/10 completed not started 10/07/19 sa Not Available Not Available Not Available Vivelle-D ot 0.0375 mg/24 hr transderm al patch Apply 1 patch twice a week by transder mal route for 90 days. 01/24 completed Not taking 04/10/22 AAS Not Available Not Available Not Available Vivelle-D ot 0.05 mg/24 hr transderm al patch apply 1 patchy twice per week 10/07 completed Not Available Not Available Not Available gabapenti n 300 mg capsule 02/12 completed Not Available Not Available Not Available raloxifen e 60 mg tablet TAKE 1 TABLET BY MOUTH DAILY 05/04 completed not current 12/05/23 tb Not Available Not Available Not Available gabapenti n 100 mg capsule TAKE 2 CAPSULES BY MOUTH DAILY 2024 active prn hot flashes Not Available Not Available Not Available estradiol 0.01% (0.1 mg/gram) vaginal cream insert 1-2 g 2-3 times a week per symptoms active Not Available Not Available No t Available dicyclomi ne 10 mg capsule 10/18 completed Not Available Not Available Not Available naproxen 500 mg tablet Take 1 tablet twice a day by oral route after meals. 10/18 completed Not Available Not Available Not Available Lotemax 0.5 % eye drops,nathaniel pension active 11/24/15 pt states she is no longer taking/j d Not Available Not Available Not Available diazepam 5 mg tablet 10/18 completed Not Available Not Available Not Available progester one micronize d 100 mg capsule TAKE 1 CAPSULE BY MOUTH EVERY DAY 01/24 completed Not taking 04/10/22 AAs Not Available Not Available Not Available oxycodone 5 mg tablet TK 1 T PO Q 4 H PRN 07/31 completed Not Available Not Available Not Available Restasis 0.05 % eye drops in a dropperet te INSTIL 1 DROP IN BOTH EYES TWICE DAILY 05/04 completed Not Available Not Available Not Available GaviLyte- G 236 gram-22.7 4 gram-6.74 gram-5.86 gram oral solution 10/18 completed Not Available Not Available Not Available Vagifem 10 mcg vaginal tablet active not taking Not Available Not Available Not Available Lotemax 0.5 % eye gel drops active 11/24/15 pt states she is no longer taking/j d Not Available Not Available Not Available BinaxNOW COVID-19 Ag Self Test kit TEST DIRECTED TODAY 03/26 completed Not Available Not Available Not Available Vitals Date Recorded Body height Systolic blood pressure Diastolic blood pressure Provider Name and Address Organization Details Last Updated DateTime 12/05/2023 167.01 cm 120 mm[Hg] 62 mm[Hg] Kamari Modi MA [facility] 12/05/2023 08:43:43 Date Recorded Body height Body mass index (BMI) Body weight Body temperature Oxygen saturation Oxygen saturation in Arterial blood by Pulse oximetry Heart rate Systolic blood pressure Diastolic blood pressure Provider Name and Address Organization Details Last Updated DateTime 4 167.01 cm 24.4 kg/m2 40738.8 6 g 96.6 [degF] 99 % 99 % 76 /min 120 mm[Hg] 68 mm[Hg] Traci Wood [facility] 4 08:48:43 Date Recorded Body height Body mass index (BMI) Body weight Systolic blood pressure Diastolic blood pressure Systolic blood pressure Diastolic blood pressure Provider Name and Address Organization Details Last Updated DateTime 3 167.01 cm 24.6 kg/m2 84496.4 5 g 152 mm[Hg] 60 mm[Hg] 128 mm[Hg] 60 mm[Hg] Diana bonds [facility] 3 08:32:13 Date Recorded Body weight Body temperature Oxygen saturation Oxygen saturation in Arterial blood by Pulse oximetry Heart rate Systolic blood pressure Diastolic blood pressure Provider Name and Address Organization Details Last Updated DateTime 5 52519.5 8 g 98.1 [degF] 99 % 99 % 83 /min 130 mm[Hg] 50 mm[Hg] Luz Mallory LPN [facility] 5 14:53:57 Date Recorded Body height Body mass index (BMI) Body weight Heart rate Oxygen saturation Oxygen saturation in Arterial blood by Pulse oximetry Body temperature Systolic blood pressure Diastolic blood pressure Provider Name and Address Organization Details Last Updated DateTime 3 167.01 cm 24.4 kg/m2 00634.8 6 g 95 /min 99 % 99 % 98.7 [degF] 126 mm[Hg] 62 mm[Hg] Darby Leung [facility] 3 09:32:57 Social History Question Answer Notes LastModified by Organizat ion Details LastModified Time Tobacco Smoking Status Former Smoker in teens and 20's 1 PPD x 2 years Artemio Ortiz MD [address] [place] [address], [address], [facility] [place]/20/2011 10:43:15 Do You Have An Advance Directive? No Not Written Information not available 07/07/2015 How Much Tobacco Do You Chew? None [email or web address] Information not available 11/24/2015 Which Illicit Or Recreational Drugs Have You Used? 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 18+yearssinc elastcigaret te Information not available 07/07/2015 Are There Any Guns Present In Your Home? No Information not available 05/29/2018 Live Alone Or With Others? Alone [email or web address] Information not available 09/21/2011 Patient Has Health Care Proxy Signed And In Chart No Not Written; Sister Bibiana Burr [email or web address] Information not available 09/21/2011 Marital Status Single Partner Eric orlin Informati on not available 07/07/2015 Mosquito Repellent Used Routinely No Information not available 05/29/2018 What Was The Date Of Your Most Recent Tobacco Screening? 05/04/2025 Information not available 05/04/2025 How Many Children Do You Have? 0 [email or web address] Information not available 09/21/2011 What Is Your Current Pack Years? 10packyears Information not available 07/07/2015 Seat Belts Used Routinely Yes [email or web address] Information not available 09/21/2011 Are You Sexually Active? Yes Male Information not available 07/20/2011 Smoke Alarm In Home Yes [email or web address] Information not available 09/21/2011 How Much Tobacco Do You Smoke? No Information not available 07/31/2019 What Types Of Sporting Activities Do You Participate In? Hiking [email or web address] Information not available 09/21/2011 General Stress Level Medium [email or web address] Information not available 09/21/2011 Do You Use Sunscreen Routinely? No Information not available 05/29/2018 Sex: Unknown Functional Status Question Answer Note LastModified by Organizat ion Details LastModified Time Do you or have you ever used any other forms of tobacco or nicotine? No [email or web address] Information not available 02/13/2024 What is your level of alcohol consumption? None Information not available 03/24/2015 Do you or have you ever used smokeless tobacco? 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 Never used electronic cigarettes Information not available 07/31/2019 Mental Status None recorded. Family History Relationship Description Onset Age of this Age Resolved Age Notes LastModified by Organization Details LastModified Time Mother Diabetes mellitus 69 previo usly record ed as Diabet es [email or web address] Not available 11/24/2015 11:23:17 Mother Heart disease 69 skillip Not available 2022 08:52:14 Mother Cerebrovascu lar accident 69 previo usly record ed as Stroke [email or web address] Not available 11/24/2015 11:23:17 Maternal Grandmother Diabetes mellitus 72 previo usly record ed as Diabet es skillip Not available 05/29/2018 08:59:45 Maternal Aunt Malignant tumor of colon 78 previo usly record ed as Cancer - Colon [email or web address] Not available 11/24/2015 11:23:17 Notes:no breast cancer; adop nabil as infant. relatives are relatives. Medical History Condition Response Substance Abuse Y Anxiety Y Migraine Headaches Y Menopausal Symptoms Y ENT Depression Y Suicide Attempt N Kidney Disease Y Gynecological History Statement/Question Response Menses Monthly Y History of Abnormal Pap Y Date of LMP 07/08/2011 Approximate Obstetrics History GPAL:G 0 P 0 0 0 0 Immunizations Vaccine Type Date Status Note Provider Nam e and Address Organization Details Recorded Time Influenza, split virus, trivalent, preservative 1 completed Not Available [facility] 11/22/2019 02:18:12 Tdap 9 completed Not [facility] 09/20/2011 05:22:52 Influenza, split virus, quadrivalent, PF 8 completed Not Available [facility] 11/22/2019 02:23:29 Influenza, split virus, quadrivalent, PF 9 completed Not Available [facility] 11/22/2019 02:26:38 Influenza, split virus, quadrivalent, PF 0 completed Sharon Gurrola RN [facility] 08/30/2020 14:02:52 Td (adult), 2 Lf tetanus toxoid, preservative free, adsorbed 2 completed [facility]20[facility] 15:34:10 COVID-19, mRNA, LNP-S, PF, 30 mcg/0.3 mL dose 1 completed [facility] 04/10/2022 15:21:02 COVID-19, mRNA, LNP-S, PF, 30 mcg/0.3 mL dose 1 completed [facility] 04/10/2022 15:21:13 COVID-19, mRNA, LNP-S, PF, 100 mcg/0.5mL dose or 50 mcg/0.25mL dose 1 completed [facility] 04/10/2022 15:21:26 COVID-19, mRNA, LNP-S, PF, 100 mcg/0.5mL dose or 50 mcg/0.25mL dose 2 completed [facility] 04/10/2022 15:21:39 influenza, unspecified formulation 2 completed Marielena Lombardo [facility] 01/24/2023 11:47:12 influenza, unspecified formulation 3 completed Kamari Modi MA [facility] 12/05/2023 08:42:35 Past Encounters Encounter ID Performer Location Encounter Start Date Encounter Closed Date Diagnosis/Indication Diagnosis SNOMED-CT Code Diagnosis ICD10 Code Diagnosis Note [id number] Kat London NP , [facility], OFFICE [address] [place] [address] 06/21/2006 12:06:17 06/21/2006 16:56:17 [id number] [facility] , [facility] [address] [place] [address] 06/21/2006 12:22:17 11/25/2008 02:02:29 [id number] [facility] , [facility] [address] [place] [address] 06/21/2006 00:00:00 11/25/2008 02:02:29 [id number] Licha Sharma NP , [facility], OFFICE [address] [place] [address] 04/18/2007 10:10:30 04/18/2007 13:56:57 [id number] [facility] - [facility] [address] [place] [address] 04/18/2007 10:50:08 04/18/2007 10:50:16 [id number] [facility] - [address] [address] 05/13/2007 14:21:47 05/13/2007 14:22:00 [id number] Sandra Rivas NP , [facility], OFFICE [address] [place] [address] 01/27/2008 14:28:48 11/25/2008 02:02:29 [id number] Rachel Cunningham. 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 , [facility] [address] [place] [address] 05/09/2011 09:44:22 05/11/2011 13:57:46 [id number] Artemio Ortiz MD , [facility], [address]ICE [address] [place] [address] 07/20/2011 09:49:27 07/20/2011 11:09:37 [id number] Artemio Ortiz MD , [facility], [address]ICE [address] [place] [address] 05/27/2012 11:52:49 05/30/2012 07:02:24 [id number] Diana Radha Talavera [employer] , [facility], [address]ICE [address] [place] [address] 01/07/2013 11:13:45 01/07/2013 12:08:21 [id number] Sam Hansen MD Radiology , [facility] [address] [place] [address] 01/07/2013 11:59:30 01/08/2013 09:30:38 [id number] Jose Osorio DPM Podiatry, [facility] [address] [place] [address] 04/10/2013 09:51:21 04/11/2013 08:45:17 [id number] Artemio Ortiz MD , [facility], [address]ICE [address] [place] [address] 03/24/2015 09:30:07 03/24/2015 10:15:15 Dry eye 7638164 check for Sjogren's. Migraine 58928023 used t o not have migraines on vivelle dot; wants Brand name Family his tory of diabetes mellitus 784323836 check labs [id number] Artemio Ortiz MD , [facility], OFFICE [address] [place] [address] 07/07/2015 11:11:02 07/07/2015 12:26:52 Lifestyle 659485822 Adult [facility] th examination 671757404 see Risk Assesment and Lifestyle Change Couseling section above Family his tory of diabetes mellitus 077770605 check labs Migraine 26777950 used t o not have migraines on vivelle dot; Atrophic vaginitis 01199139 has severe troubles with this; is interested in testostero [place]. [id number] Artemio Ortiz MD , [facility], OFFICE [address] [place] [address] 11/11/2015 15:41:30 11/11/2015 16:26:29 Abdominal pain 56109135 R10.9 unclear picture, exam including pelvic reassuring ; check labs, get results of pelvic ultrasound [id number] Traci Estes MD , [facility], OFFICE [address] [place] [address] 11/24/2015 10:41:21 11/24/2015 11:23:37 Abdominal pain 73342350 R10.9 pt represents with abd pain that moves across lower abd mild nausea, has appetite, bowels changing with bowel meds and pain after BM tearful with pain, some relief ibuprofen normal lab w/u here and then in ED pelvic exam yesterday with Naomie Sargent reported as fullness, pelvic US this afternoon with STEREOPTICIAN plan for tx naproxen, f/u US tomorrow, if WNL then would move to CT scan pt agrees to plan more than 50% of 25 min visit spent in counseling [id number] Artemio Ortiz MD , [facility], OFFICE [address] [place] [address] 10/18/2016 09:30:41 10/18/2016 10:15:18 Migraine 25244088 G43.909 used to not have migraines on vivelle dot full dose; needs to go back on vivelle dot full dose; also can use imitrex as abortive. be sure to have imitrex, and we will monitor for now. call if another headache as this would be very out of her usual parameters , reassured CT normal. she is still feeling a bit unde rthe weather; expect this to be normal 1-2 more weeks. suggested check in in 1 week to review sx. [id number] Artemio Ortiz MD , [facility], [address]ICE [address] [place] [address] 11/08/2016 11:01:57 11/08/2016 11:37:42 Pain of wrist region 34373489 M25.539 ? autoimmune ; if labs normal try ibuprofen 600 mg three times a day x 2 weeks Migraine 10138958 G43.90 9 back on vivelle dot 0.375; no hot flashes, no migraines in past 2 weeks. continue to monitor [id number] Artemio Ortiz MD , [facility], [address]ICE [address] [place] [address] 05/29/2018 08:35:05 05/30/2018 09:28:23 Family history of diabetes mellitus 585321384 Z83.3 check. standing labs put in. Hyperlipidemia 08510269 E78.5 levels dropped with a strict change in diet Migraine 22952020 G43.90 9 Uses hormones to prevent migraines no hot flashes, no migraines in past 2 weeks. continue to monitor Adult [facility] th examination 220168851 Z00.00 [id number] Artemio Ortiz MD , [facility], OFFICE [address] [place] [address] 07/06/2018 09:32:22 07/06/2018 10:43:39 Urinary tract infectious disease 10375093 N39.0 Patient instructed to push fluids, to follow up for persistent or worsening symptoms or fever or back pain. Atrophic vaginitis 67697 000 N95.2 has severe troubles with this; works well and wants to go back on [id number] Artemio Ortiz MD , [facility], OFFICE [address] [place] [address] 09/23/2018 14:26:47 09/23/2018 15:45:12 Palpitations 13304312 R00.2 check Holter; she prefers next week; schedule nursing visit Active or passive immunization 860286661 Z23 Mixed hyperlipidemia 267 297096 E78.2 discussed, declined meds at this time Family his tory of diabetes mellitus 009668421 Z83.3 check. standing labs put in. Dysfunctio n of eustachian tube 55589187 H69.93 suggested flonase Serum crea tinine above reference range 115357689 R79.89 chroic and mild, improved on vegan diet, worse when she eats meat. reassured [id number] Artemio Ortiz MD , [facility], OFFICE [address] [place] [address] 10/03/2018 10:16:16 10/04/2018 15:51:53 Palpitations 77524392 R00.2 check Holter; she prefers next week; schedule nursing visit [id number] Artemio Ortiz MD , [facility], OFFICE [address] [place] [address] 10/04/2018 10:49:24 10/04/2018 11:11:23 Palpitations 10164729 R00.2 [id number] Artemio Ortiz MD , [facility], [address]ICE [address] [place] [address] 07/31/2019 09:28:05 07/31/2019 10:15:25 Active or passive immunization 230020309 Z23 Postmenopausal state 764 31708 Z78.0 gets severe vaginal irritation without double dose estrogen; needs [place], had Bandar Ying, no replacemen t locally Major depr essive disorder 240955877 F32.0 start low dose meds. follow up 4 weeks Family his tory of diabetes mellitus 623523052 Z83.3 check. standing labs put in. [id number] Artemio Ortiz MD , [facility], [address]ICE [address] [place] [address] 10/07/2019 14:00:01 10/08/2019 07:51:52 Hyperlipidemia 29779281 E78.5 levels dropped with a strict change in diet; now a bit back upcounsele d 30 minutes re cholestero l Anxiety 09814661 F41.9 did not start meds [id number] Greta Brambila NP , [facility], [address] [place] [address] 08/30/2020 07:18:55 08/30/2020 15:46:52 Active or passive immunization [id number] Z23 [id number] Artemio Ortiz MD , [facility], [address] [place] [address] 04/10/2022 15:13:37 04/10/2022 15:57:40 Elevated blood-pressure reading without diagnosis of hypertension [id number] R03.0 follow up for blood pressure evaluation discussed the impact of weight loss, restrictin g salt ,and exercise of lowering blood pressure.D iscussed the potential impact of alcohol use of increasing blood pressure.s he would like 3 months lifestyle to change BP Active or passive immunization [id number] Z23 Endocrine/ metabolic screening [id number] Z13.637 [id number] Artemio Ortiz MD , [facility], [address] [place] [address] 01/24/2023 11:40:30 01/24/2023 12:26:51 Hyperlipidemia 79340192 E78.5 levels dropped with a strict change in diet; now a bit back upcounsele d 30 minutes re cholestero l Elevated blood-pressure reading without diagnosis of hypertension [id number] R03.0 follow up for blood pressure evaluation discussed the impact of weight loss, restrictin g salt ,and exercise of lowering blood pressure.D iscussed the potential impact of alcohol use of increasing blood pressure.s he would like 2 months lifestyle to resume BP regimen Blood gluc ose outside reference range 902736346 R73.09 she can get high postprandi als Migraine [id number] G43.90 9 Uses hormones to prevent migraines no hot flashes, no migraines in past 2 weeks. continue to monitor Atrophic vaginitis [id number] N95.2 has severe troubles with this; works well and wants to go back on Postmenopausal state [id number] Z78.0 gets severe vaginal irritation without double dose estrogen; needs [place], had Bandar Ying, no replacemen t locally [id number] Artemio Ortiz MD , [facility], [address] [place] [address] 03/26/2023 08:12:58 03/26/2023 11:03:02 Blood glucose outside reference range 266346027 R73.09 monitor; discussed statin and tendency to raise sugars, FH mother stroke 69 BUT DM since 40's, smoker; overweight ; all RF you do not have.for now no statin, will monitor twice a year and decide later 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 , [facility], [address] [place] [address] 05/05/2023 09:25:15 05/05/2023 10:25:32 Dysuria 49074609 R30.0 lower abd pain , increased freq with discomfort urine looks fine but drank excessivel y and quite dilutedwil l submit for cxgiven her discomfort will tx with bactrim DS bid x 3 daysf/u prn [id number] Artemio Ortiz MD , [facility], [address] [place] [address] 12/05/2023 08:38:48 12/05/2023 16:40:18 Impaired fasting glycemia 510664884 R73.01 consistent over last few years, she has glucometer , and states this is usually post-prand ial. Endocrine/ metabolic screening 313906523 Z13.228 check Hyperlipidemia 26270985 E78.5 levels dropped with a strict change in diet; now back upcounsele d re cholestero l; agreed try low strength statin to se eif she can tolerate it. 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 There are tiny freeman angiomas on the chest which are benign appearing. Pt reassured regarding this. [id number] Beni Cho MD , [facility], [address] [place] [address] 05/04/2025 14:38:55 05/04/2025 15:17:31 Flank pain 667253717 R10.9 1+ blood - will send for culture Right uppe r quadrant pain 697733166 R10.11 will obtain labs, imagingf/u per results. Menopausal syndrome [phone] N95.1 Health Concerns Section Related Observation LastModified by Organization Detai ls LastModified Time None Recorded Concern Status LastModified by Organization Details LastModified Time None Recorded Advance Directives Directive N: not written Payers Insurance Date Sequence Insurance Name Policy Number Policy Tuttle Covered Member ID Tuttle Member ID Guarantor Name 10/18/2023 1 *SELF PAY* Luis Burr 12/05/2023 1 [employer] - [employer] (MEDICARE SUPPLEMENT) Rebeca Burr [id number] Rebeca Burr 12/05/2023 1 *SELF PAY* Luis Burr 05/05/2025 1 [facility] [place] [place] [id number] Rebeca Burr [id number] Rebeca Burr 04/10/2022 1 [place]HMO[place] [id number] Rebeca Burr [id number] 1 Rebeca Burr 04/10/2022 1 [place] [id number] Rebeca Burr [id number] Rebeca Burr 04/10/2022 1 [facility] [id number] Rebeca Burr [id number] Rebeca Fordn 01/07/2013 1 *SELF PAY* Luis reyes Leno 10/03/2023 1 [facility] [place] [place] [id number] Rebeca Fordn [id number] Rebeca Leno 10/18/2023 2 [facility] (O) [id number] Rebeca Leno [id number] Rebeca Leno 04/10/2022 1 [facility] (O) [id number] Rebeca Haque Leno [id number] Rebeca Leno 04/10/2022 1 [facility] [place] Rebeca Haque Leno [id number] Rebeca Leno 05/04/2025 1 [employer] ([facility]) [id number] Rebeca Leno [id number] Rebeca Leno Notes Date Note Type Note Provider Name and Address Organization Details Recorded Time 03/26/2023 text/html Pt presents in o ffice for an 8 week follow up. at home getting 118-125 systolicexercising; hiking uphill 4-5 times a weeks; also circuit training - 1.5 hours a week. glucose intolerance; being monitored. cholesterol borderline Blood pressures:av/771st: 115/782nd: 126/893rd: 146/64HR: 93-95 01/24/23she was managing BP at home with weight loss - lost 13 lbs. last weekhad a in the family in last week, and BP is high not doing weights and training as usual due to the .wants to recheck cholesterol 04/10/22Pt reports elevated home BP readings- 150/60. Reports some lightheadedness when standing. Artemio Ortiz MD [address] [place] [address], [phone], [facility] [place] 03/26/2023 09:21:46 05/05/2023 text/html last night devel oped lower abd/pelvic painwoke middleof night to pee- painfulfeels systemically ill - chillsdrank almost gallon of water.no increase frequency today. Isa Santiago NP [address] [place], [address], [facility] [place] 05/05/2023 10:14:24 12/05/2023 text/html pt presents for 6 mo f/u, ? regarding blood work results, no further specific concerns at this timeblood work shows mild fasting hyperglycemia with HgbA1c 6.1 Also high cholesterol including LDL >200 with high HDL.Discussed statins, she is concerned about pushing herself into diabetes Artemio Ortiz MD [address] [place], [address], [facility] [place] 12/05/2023 13:07:54 02/13/2024 text/html Pt reports she noticed tiny dots around the cuticle and tiny red dots on chest and upper arms that she noticed 2 weeks ago.Is in her usual state of health.No new medications.No rash. Evi Martell PA-C [address] [place], [address], [facility] [place] 02/13/2024 09:17:03 05/04/2025 text/html Patient presents to the office c/o intermittent RUQ pain x 1 month, has become constant, mild R flank painstill has gall bladder, no hx renal calculiworse past weekfeels digestiveBMs ok - on miralax - passing gashx appendectomyno fever, N/V also requests refill of gabapentin for occas hot flashes. Greta Brambila NP [address] [place], [address], [facility] [place] 05/04/2025 17:20:05 OBGyn Episode No OBEpisode recorded.
--- NOTE | 2025-05-05 16:17 | PC.NURSE ---
20gIV placed in the left AC - IVF infusing per provider order. pt refusing medication administration. provider notified/aware. pt pending CT scan at this time. plan of care ongoing. call estes placed within reach.
[2025-05-05 17:14] VITALS: BP 136/65; PULSE 70; RESP 18; TEMP 36.8; O2SAT 98
[2025-05-05] MEDS: Milk of Magnesia 30 ML ORAL.SUSP PO (18:57)
[2025-05-05 19:00] VITALS: BP 136/65; PULSE 70; RESP 18; TEMP 36.8; O2SAT 98
== END 2025-05-05 19:01 | disposition home or self-care (01) ==
PROVIDERS: Nurse Practitioner Family; Emergency Provider Emergency Medicine Emergency Medical Services; PCP Family Medicine
DX: K59.00 Constipation, unspecified (principal); D25.9 Leiomyoma of uterus, unspecified; R10.31 Right lower quadrant pain; R11.0 Nausea; R10.2 Pelvic and perineal pain; Z79.899 Other long term (current) drug therapy
CPT/HCPCS: 36415; 74176; 80053; 81001; 83690; 83735; 85025; 93005; 96360; 96361; 99284; 99285

== ENCOUNTER → 2025-05-05 11:18 | Outpatient (BNV) | payer OTHER, SELFPAY | PROVIDERS: Emergency Provider Emergency Medicine Emergency Medical Services; PCP Family Medicine; Visit Provider Internal Medicine Cardiovascular Disease | DX: R10.9 Unspecified abdominal pain (principal) | CPT/HCPCS: 93010 ==

== ENCOUNTER → 2025-05-05 15:27 | Outpatient (BNV) | payer OTHER, SELFPAY | PROVIDERS: Emergency Provider Emergency Medicine Emergency Medical Services; PCP Family Medicine; Visit Provider Radiology Diagnostic Radiology | DX: R10.31 Right lower quadrant pain (principal) | CPT/HCPCS: 74176 ==